=== PATIENT | female | born 1995 | race Caucasian/White ===

== ENCOUNTER 2022-08-27 17:18 | Emergency (ER) | payer MEDICAID ==
[~2022-08-27] VITALS: Ht 157.5 cm; Wt 52.3 kg
[2022-08-27] MEDS ORDERED: HYDR-3965 PO (18:59)
[2022-08-27] MEDS ORDERED: AMOX-117 PO (18:59)
[2022-08-27] MEDS ORDERED: HYDROcodone/acetaminophen 5mg/325mg tablet PO ONE (19:05)
[2022-08-27 20:36] VITALS: BP 127/89
== END 2022-08-27 20:39 | disposition home or self-care (01) ==
LOC: ER 17:19
DX: S02.2XXA Fracture of nasal bones, initial encounter for closed fracture (principal); Y04.8XXA Assault by other bodily force, initial encounter; Y93.89 Activity, other specified; Y92.89 Other specified places as the place of occurrence of the external cause; Y99.8 Other external cause status
CPT/HCPCS: 70450; 70486; 99284